=== PATIENT | female | born 1950 | race Caucasian/White ===

== ENCOUNTER 2020-06-09 14:30 | Emergency (ER) | payer MEDICARE, OTHER ==
--- NOTE | 2020-06-09 15:12 | EDM.PDOC ---
ED HPI GENERAL MEDICAL PROBLEM - General Chief Complaint: Eye Problems Stated Complaint: SOMETHING IN LEFT EYE Time Seen by Provider: 06/09/20 14:59 - History of Present Illness INITIAL COMMENTS - FREE TEXT/NARRATIVE: 70-year-old female presents with foul-smelling urine malaise and left eyelid swelling. Patient states that she woke up yesterday morning with irritated red and inflamed left upper eyelid. Patient initially had some blurry vision as well as intense pressure sensation. The symptoms have improved though she still has some ongoing discomfort and redness. No diplopia no pain with extraocular motion and now feels much improved compared to earlier in the day. Symptoms seem to improve spontaneously an hour or so ago. Patient also states that she is on oxybutynin for urinary issues. She often does not urinate when she sits on the toilet until her bladder is very full and then she has a large volume urination. She says that for the last week it has had an intense ammonia smell to it and she is felt generally unwell. No chest pain no shortness of breath no abdominal pain no back or flank pain. No exacerbating or alleviating factors radiation or other associated symptoms. left eye Pain Score (Numeric/FACES): 3 - Related Data Allergies Allergy/AdvReac Type Severity Reaction Status Date / Time No Known Allergies Allergy Verified 06/09/20 14:49 Home Meds: Home Meds Aspirin 1 tab PO DAILY 06/09/20 [History] Celecoxib [CeleBREX] 100 mg PO DAILY 06/09/20 [History] Furosemide 20 mg PO DAILY 06/09/20 [History] Levothyroxine 300 mcg PO DAILY 06/09/20 [History] Multivitamin 1 tab PO DAILY 06/09/20 [History] Sertraline [Zoloft] 100 mg PO DAILY 06/09/20 [History] cephALEXin [Keflex] 500 mg PO BID #10 cap 06/09/20 [Rx] hydroCHLOROthiazide [Hydrochlorothiazide] 12.5 mg PO DAILY 06/09/20 [History] Past Medical History Cardiovascular History: Reports: Hypertension Musculoskeletal History: Reports: Arthritis Endocrine/Metabolic History: Reports: Hypothyroidism - Past Surgical History Musculoskeletal Surgical History: Reports: Knee Replacement Social & Family History - Family History Family Medical History: No Pertinent Family History - Tobacco Use Tobacco Use Status *Q: Never Tobacco User - Recreational Drug Use Recreational Drug Use: No ED ROS GENERAL - Review of Systems Review Of Systems: See Below Free Text/Narrative/Comment: General: No fever. Skin: No rash. Eyes: Per HPI ENT: No sore throat. Neck: No neck stiffness. Respiratory: No shortness of breath. Cardiac: No chest pain. Gastrointestinal: No nausea, vomiting or abdominal pain. Urinary: Per HPI Musculoskeletal: No myalgias/arthralgias. Neurologic: No headache. ED EXAM GENERAL W FULL EYE - Physical Exam Exam: See Below Text/Narrative:: General Appearance: No acute distress, appears comfortable Skin: No rash HEENT: Normocephalic/atraumatic, sclera anicteric, mucous membranes moist, left upper eyelid with mild tenderness and erythema very minimal swelling. Evaluation of the photo patient brought from yesterday demonstrates significantly more swelling and erythema and a visible stye, no conjunctival injection pupils PERRLA extraocular motions full and painless. Neck: Normal range of motion Back: Normal Musculoskeletal: No edema or tenderness Neurologic: Awake, alert, no obvious deficits, moving all extremities Psychiatric: Appropriate, cooperative Course - Vital Signs Last Recorded V/S: Last Vital Signs Temp 98 F 06/09/20 14:47 Pulse 88 06/09/20 14:47 Resp 20 06/09/20 14:47 BP 132/70 06/09/20 14:47 Pulse Ox 93 L 06/09/20 14:47 - Orders/Labs/Meds Orders: Active Orders 24 hr Category Date Time Status cephALEXin [Keflex] Med 06/09/20 16:08 Once 500 mg PO ONETIME ONE Labs: Laboratory Tests 06/09/20 Range/Units 15:30 Urine Color YELLOW Urine Appearance HAZY Urine pH 5.5 (5.0-8.0) Ur Specific [place] >= 1.030 (1.001-1.035) Urine Protein NEGATIVE (NEGATIVE) mg/dL Urine Glucose (UA) NEGATIVE (NEGATIVE) mg/dL Urine Ketones NEGATIVE (NEGATIVE) mg/dL Urine Occult Blood NEGATIVE (NEGATIVE) Urine Nitrite POSITIVE H (NEGATIVE) Urine Bilirubin NEGATIVE (NEGATIVE) Urine Urobilinogen 0.2 (<2.0) EU/dL Ur Leukocyte Esterase NEGATIVE (NEGATIVE) Urine RBC 0-2 (0-2/HPF) Urine WBC 3-6 (0-5/HPF) Ur Epithelial Cells FEW (NONE-FEW) Urine Bacteria 2+ H (NEGATIVE) Departure - Departure Time of Disposition: 16:09 Disposition: Home, Self-Care 01 Condition: Good Clinical Impression: Blepharitis, UTI (urinary tract infection) - Discharge Information *PRESCRIPTION DRUG MONITORING PROGRAM REVIEWED*: Not Applicable *COPY OF PRESCRIPTION DRUG MONITORING REPORT IN PATIENT DONATO: Not Applicable Prescriptions: cephALEXin [Keflex] 500 mg PO BID #10 cap Instructions: Blepharitis, [id number], Urinary Tract Infection, Adult Referrals: Deanna Paredes DO [Primary Care Provider] - Forms: ED Department Discharge Additional Instructions: Your left eye should continue to improve with warm compresses over the next 2 days. You have been given your first dose of the antibiotic for your urinary tract infection here in the ER. Your next dose is due tomorrow morning. If you have worsening urinary symptoms fevers flank pain or any other new symptoms that concern you please call your primary care doctor or return to the ER. The following information is given to patients seen in the emergency department who are being discharged to home. This information is to outline your options for follow-up care. We provide all patients seen in our emergency department with a follow-up referral. The need for follow-up, as well as the timing and circumstances, are variable depending upon the specifics of your emergency department visit. If you don't have a primary care physician on staff, we will provide you with a referral. We always advise you to contact your personal physician following an emergency department visit to inform them of the circumstance of the visit and for follow-up with them and/or the need for any referrals to a consulting specialist. The emergency department will also refer you to a specialist when appropriate. This referral assures that you have the opportunity for follow-up care with a specialist. All of these measure are taken in an effort to provide you with optimal care, which includes your follow-up. Under all circumstances we always encourage you to contact your private physician who remains a resource for coordinating your care. When calling for follow-up care, please make the office aware that this follow-up is from your recent emergency room visit. If for any reason you are refused follow-up, please contact the [facility] Emergency Department at and asked to speak to the emergency department charge nurse. Sepsis Event Note (ED) - Evaluation Sepsis Screening Result: No Definite Risk - Focused Exam Vital Signs: Vital Signs Temp Pulse Resp BP Pulse Ox 06/09/20 14:47 98 F 88 20 132/70 93 L - My Orders Last 24 Hours: My Active Orders 06/09/20 16:08 cephALEXin [Keflex] 500 mg PO ONETIME ONE - Assessment/Plan Last 24 Hours: My Active Orders 06/09/20 16:08 cephALEXin [Keflex] 500 mg PO ONETIME ONE Assessment:: 70-year-old female presenting with stye now resolving blepharitis. Given the significant improvement with warm compresses which the patient has been doing would encourage ongoing warm compresses but would not add antibiotic ointments at this time. Regarding the foul-smelling urine UTI certainly needs to be considered and urinalysis sent. Urinalysis consistent with early UTI given bacteria and nitrites will treat with Keflex 500 twice daily for 5 days. First dose given here.
[2020-06-09] MEDS ORDERED: Cephalexin 500 MG Cap PO ONE (16:08)
== END 2020-06-09 16:34 | disposition home or self-care (01) ==
LOC: MW.ED 14:31
DX: H01.004 Unspecified blepharitis left upper eyelid (principal); N39.0 Urinary tract infection, site not specified; I10 Essential (primary) hypertension; M19.90 Unspecified osteoarthritis, unspecified site; E03.9 Hypothyroidism, unspecified; Z79.82 Long term (current) use of aspirin; Z79.899 Other long term (current) drug therapy
CPT/HCPCS: 81001; 99283; A9270

== ENCOUNTER 2021-05-03 12:22 | Emergency (ER) | payer MEDICARE ==
[2021-05-03] MEDS ORDERED: Diphtheria,Pertussis(Acell),Tetanus Vaccine 0.5 ML Syringe IM ONE (12:37)
[2021-05-03] MEDS ORDERED: LIDOCAINE 1% INJECT ONE (13:13)
== END 2021-05-03 13:59 | disposition home or self-care (01) ==
LOC: MW.ED 12:22
DX: S93.402A Sprain of unspecified ligament of left ankle, initial encounter (principal); S80.02XA Contusion of left knee, initial encounter; S70.02XA Contusion of left hip, initial encounter; S00.81XA Abrasion of other part of head, initial encounter; I10 Essential (primary) hypertension; E03.9 Hypothyroidism, unspecified; Z79.82 Long term (current) use of aspirin; Z79.899 Other long term (current) drug therapy; Z23 Encounter for immunization; W18.30XA Fall on same level, unspecified, initial encounter
CPT/HCPCS: 73502-26-LT; 73502-LT; 73562-26-LT; 73562-LT; 73610-26-LT; 73610-LT; 90471; 90715; 99284-25

== ENCOUNTER 2021-08-01 15:11 | Observation (INO) | payer MEDICARE, OTHER ==
[2021-08-01] MEDS ORDERED: Sodium Chloride 0.9% 2.5 ML Syringe FLUSH PRN (15:30)
[2021-08-01] MEDS ORDERED: Sodium Chloride 0.9% 10 ML Syringe FLUSH PRN (15:30)
[2021-08-01] MEDS ORDERED: Nitroglycerin 0.4 MG Tab.SL SL PRN (16:02)
[2021-08-01 16:23] LABS: BLOOD UREA NITROGEN,BUN 27 mg/dL (7.0-18.0); CARBON DIOXIDE,CO2 26.7 mmol/L (21.0-32.0); CHLORIDE,CL 101 mmol/L (98-107); GLUCOSE RANDOM 113 mg/dL (74-106); POTASSIUM,K 3.5 mmol/L (3.5-5.1); SODIUM,NA 137 mmol/L (136-145)
[2021-08-01] MEDS ORDERED: Morphine 4 MG/ML VIAL IM ONE (18:25)
[2021-08-01] MEDS ORDERED: Morphine 4 MG/ML VIAL ONE (18:27)
[2021-08-01] MEDS ORDERED: Morphine 4 MG/ML VIAL IVPUSH ONE (18:30)
[2021-08-01] MEDS ORDERED: Budesonide/Formoterol 160-4.5 MCG/Puff 6 GM Inhaler INH SCH (22:00)
[2021-08-01] MEDS ORDERED: ALBUTEROL INH SCH (22:00)
[2021-08-02] MEDS ORDERED: Iopamidol 755 MG/ML 500 ML Multipack Bottle IVPUSH ONE (00:46)
[2021-08-02] MEDS ORDERED: Hydrochlorothiazide 12.5 MG Cap PO SCH (09:00)
[2021-08-02] MEDS ORDERED: Furosemide 20 MG Tab PO SCH (09:00)
[2021-08-02] MEDS ORDERED: Levothyroxine 100 MCG Tab PO SCH (09:00)
[2021-08-02] MEDS ORDERED: Sertraline 100 MG Tab PO SCH (09:00)
== END 2021-08-02 13:10 | disposition home or self-care (01) ==
LOC: MW.ED 15:11 → MW.MS 19:27
PROVIDERS: ADMIT Internal Medicine; ATTEND Internal Medicine
DX: R07.9 Chest pain, unspecified (principal); E03.9 Hypothyroidism, unspecified; I10 Essential (primary) hypertension; F32.A Depression, unspecified; J44.9 Chronic obstructive pulmonary disease, unspecified; I51.7 Cardiomegaly; Z20.822 Contact with and (suspected) exposure to COVID-19; Z98.890 Other specified postprocedural states; Z86.73 Personal history of transient ischemic attack (TIA), and cerebral infarction without residual deficits; Z79.82 Long term (current) use of aspirin; Z79.899 Other long term (current) drug therapy; Z79.890 Hormone replacement therapy; Z90.49 Acquired absence of other specified parts of digestive tract
CPT/HCPCS: 36415; 70450; 71045; 71275; 80053; 83880; 84484; 85025; 93005; 96374; 99285; A9270; J2270; J3490; Q9967; U0002; G0378

== ENCOUNTER 2021-12-16 08:00 | Emergency (ER) | payer MEDICARE, OTHER ==
[2021-12-16] MEDS ORDERED: Albuterol/Ipratropium 3.0-0.5 MG/3 ML Neb Soln INH ONE ×2 (16:37→18:30)
[2021-12-16] MEDS ORDERED: Furosemide 40 MG/4 ML VIAL IV ONE (16:39)
== END 2021-12-16 21:36 | disposition other institution (70) ==
LOC: MW.ED 08:00
DX: J44.1 Chronic obstructive pulmonary disease with (acute) exacerbation (principal); I10 Essential (primary) hypertension
CPT/HCPCS: 71046; 96374; 99285; J1940; J7620-GY